=== PATIENT | male | born 1950 | race Caucasian/White ===

== ENCOUNTER → 2019-09-06 10:01 | Outpatient (BNVA) | payer MEDICARE, SELFPAY | PROVIDERS: Family Provider Nurse Practitioner Family; PCP Nurse Practitioner Family; Visit Provider Nurse Practitioner Family | DX: E11.65 Type 2 diabetes mellitus with hyperglycemia (principal); G47.00 Insomnia, unspecified; J30.89 Other allergic rhinitis; K21.9 Gastro-esophageal reflux disease without esophagitis; I10 Essential (primary) hypertension; R11.0 Nausea; E78.2 Mixed hyperlipidemia; E78.5 Hyperlipidemia, unspecified; Z91.19 Patient's noncompliance with other medical treatment and regimen | CPT/HCPCS: 80053; 80061; 83036; 84443; 85025 ==

== ENCOUNTER → 2019-09-08 08:42 | Outpatient (BNVA) | payer MEDICARE, SELFPAY | PROVIDERS: Family Provider Nurse Practitioner Family; PCP Nurse Practitioner Family; Visit Provider Nurse Practitioner | DX: M54.9 Dorsalgia, unspecified (principal); F17.220 Nicotine dependence, chewing tobacco, uncomplicated; Z79.891 Long term (current) use of opiate analgesic; Z71.6 Tobacco abuse counseling | CPT/HCPCS: 99214 ==

== ENCOUNTER → 2020-01-11 08:50 | Outpatient (BNVA) | payer MEDICARE, SELFPAY | PROVIDERS: Family Provider Nurse Practitioner Family; PCP Nurse Practitioner Family; Visit Provider Anesthesiology | DX: G89.29 Other chronic pain (principal); M54.41 Lumbago with sciatica, right side; M54.42 Lumbago with sciatica, left side; M25.511 Pain in right shoulder; M25.512 Pain in left shoulder; F17.220 Nicotine dependence, chewing tobacco, uncomplicated; Z79.891 Long term (current) use of opiate analgesic; Z71.6 Tobacco abuse counseling | CPT/HCPCS: 99214 ==

== ENCOUNTER → 2020-03-06 08:34 | Outpatient (BNVA) | payer MEDICARE, SELFPAY | PROVIDERS: Family Provider Nurse Practitioner Family; PCP Nurse Practitioner Family; Visit Provider Nurse Practitioner Family | DX: E78.2 Mixed hyperlipidemia (principal); E11.65 Type 2 diabetes mellitus with hyperglycemia; G47.00 Insomnia, unspecified; K21.9 Gastro-esophageal reflux disease without esophagitis; I10 Essential (primary) hypertension; J30.89 Other allergic rhinitis; R11.0 Nausea; F32.9 Major depressive disorder, single episode, unspecified; F17.220 Nicotine dependence, chewing tobacco, uncomplicated; Z91.19 Patient's noncompliance with other medical treatment and regimen | CPT/HCPCS: 80053; 80061; 83036; 84443; 85025 ==

== ENCOUNTER → 2020-03-14 08:29 | Outpatient (BNVA) | payer MEDICARE, SELFPAY | PROVIDERS: Family Provider Nurse Practitioner Family; PCP Nurse Practitioner Family; Visit Provider Anesthesiology | DX: G89.29 Other chronic pain (principal); M54.42 Lumbago with sciatica, left side; M54.41 Lumbago with sciatica, right side; M25.511 Pain in right shoulder; M25.512 Pain in left shoulder; F17.220 Nicotine dependence, chewing tobacco, uncomplicated; Z79.891 Long term (current) use of opiate analgesic | CPT/HCPCS: 99214 ==

== ENCOUNTER → 2020-05-16 07:51 | Outpatient (BNVA) | payer MEDICARE, SELFPAY | PROVIDERS: Family Provider Nurse Practitioner Family; PCP Nurse Practitioner Family; Visit Provider Anesthesiology | DX: G89.29 Other chronic pain (principal); M54.5 Low back pain; M25.511 Pain in right shoulder; M25.512 Pain in left shoulder; F17.220 Nicotine dependence, chewing tobacco, uncomplicated; Z79.891 Long term (current) use of opiate analgesic | CPT/HCPCS: 99214 ==

== ENCOUNTER → 2020-06-08 09:54 | Outpatient (BNVA) | payer MEDICARE, SELFPAY | PROVIDERS: Family Provider Nurse Practitioner Family; PCP Nurse Practitioner Family; Visit Provider Nurse Practitioner Family | DX: E78.2 Mixed hyperlipidemia (principal); E11.65 Type 2 diabetes mellitus with hyperglycemia; K21.9 Gastro-esophageal reflux disease without esophagitis; J30.89 Other allergic rhinitis; I10 Essential (primary) hypertension; G47.00 Insomnia, unspecified; R11.0 Nausea; F32.9 Major depressive disorder, single episode, unspecified; F17.220 Nicotine dependence, chewing tobacco, uncomplicated; Z91.19 Patient's noncompliance with other medical treatment and regimen | CPT/HCPCS: 80053; 80061; 83036; 84443; 85025 ==

== ENCOUNTER → 2020-07-11 08:44 | Outpatient (BNVA) | payer MEDICARE, SELFPAY | PROVIDERS: Family Provider Nurse Practitioner Family; PCP Nurse Practitioner Family; Visit Provider Nurse Practitioner | DX: G89.29 Other chronic pain (principal); M54.42 Lumbago with sciatica, left side; M54.41 Lumbago with sciatica, right side; M25.511 Pain in right shoulder; M25.512 Pain in left shoulder; F17.220 Nicotine dependence, chewing tobacco, uncomplicated; Z79.891 Long term (current) use of opiate analgesic; Z71.6 Tobacco abuse counseling | CPT/HCPCS: 99213; 99214 ==

== ENCOUNTER → 2020-09-01 08:42 | Outpatient (BNVA) | payer MEDICARE, SELFPAY | PROVIDERS: Family Provider Nurse Practitioner Family; PCP Nurse Practitioner Family; Visit Provider Nurse Practitioner Family | DX: E78.2 Mixed hyperlipidemia (principal); E11.9 Type 2 diabetes mellitus without complications; I10 Essential (primary) hypertension; K21.9 Gastro-esophageal reflux disease without esophagitis; G47.00 Insomnia, unspecified; F41.9 Anxiety disorder, unspecified | CPT/HCPCS: 80053; 80061; 83036; 84443; 85025 ==

== ENCOUNTER → 2020-09-15 09:50 | Outpatient (BNVA) | payer MEDICARE, SELFPAY | PROVIDERS: Family Provider Nurse Practitioner Family; PCP Nurse Practitioner Family; Visit Provider Nurse Practitioner | DX: G89.29 Other chronic pain (principal); M54.5 Low back pain; M25.511 Pain in right shoulder; M25.512 Pain in left shoulder; F17.220 Nicotine dependence, chewing tobacco, uncomplicated; Z79.891 Long term (current) use of opiate analgesic; Z71.6 Tobacco abuse counseling | CPT/HCPCS: 99213; 99214 ==

== ENCOUNTER → 2020-11-14 09:51 | Outpatient (BNVA) | payer MEDICARE, SELFPAY | PROVIDERS: Family Provider Nurse Practitioner Family; PCP Nurse Practitioner Family; Visit Provider Anesthesiology | DX: G89.29 Other chronic pain (principal); M54.5 Low back pain; M25.511 Pain in right shoulder; M25.512 Pain in left shoulder; F17.220 Nicotine dependence, chewing tobacco, uncomplicated; Z79.891 Long term (current) use of opiate analgesic | CPT/HCPCS: 99214 ==

== ENCOUNTER → 2020-12-04 10:21 | Outpatient (BNVA) | payer MEDICARE, SELFPAY | PROVIDERS: Family Provider Nurse Practitioner Family; PCP Nurse Practitioner Family; Visit Provider Nurse Practitioner Family | DX: E11.9 Type 2 diabetes mellitus without complications (principal); E78.2 Mixed hyperlipidemia; I10 Essential (primary) hypertension; K21.9 Gastro-esophageal reflux disease without esophagitis; R11.0 Nausea; G47.00 Insomnia, unspecified; F41.9 Anxiety disorder, unspecified; F32.9 Major depressive disorder, single episode, unspecified; J30.89 Other allergic rhinitis; F17.220 Nicotine dependence, chewing tobacco, uncomplicated; Z91.19 Patient's noncompliance with other medical treatment and regimen; M25.562 Pain in left knee | CPT/HCPCS: 80053; 80061; 83036; 84443; 85025 ==

== ENCOUNTER → 2020-12-06 09:58 | Outpatient (BNVA) | payer MEDICARE, SELFPAY | PROVIDERS: Family Provider Nurse Practitioner Family; PCP Nurse Practitioner Family; Visit Provider Nurse Practitioner Family | DX: M17.12 Unilateral primary osteoarthritis, left knee (principal); M25.562 Pain in left knee | CPT/HCPCS: 73562 ==

== ENCOUNTER → 2021-01-10 09:48 | Outpatient (BNVA) | payer MEDICARE, SELFPAY | PROVIDERS: Family Provider Nurse Practitioner Family; PCP Nurse Practitioner Family; Visit Provider Anesthesiology | DX: G89.29 Other chronic pain (principal); M54.5 Low back pain; M25.511 Pain in right shoulder; M25.512 Pain in left shoulder; F17.220 Nicotine dependence, chewing tobacco, uncomplicated; Z79.891 Long term (current) use of opiate analgesic | CPT/HCPCS: 99214 ==

== ENCOUNTER → 2021-02-27 08:51 | Outpatient (BNVA) | payer MEDICARE, SELFPAY | PROVIDERS: Family Provider Nurse Practitioner Family; PCP Nurse Practitioner Family; Visit Provider Nurse Practitioner Family | DX: E78.2 Mixed hyperlipidemia (principal); E11.9 Type 2 diabetes mellitus without complications; G47.00 Insomnia, unspecified; I10 Essential (primary) hypertension; K21.9 Gastro-esophageal reflux disease without esophagitis; J30.89 Other allergic rhinitis; F41.9 Anxiety disorder, unspecified | CPT/HCPCS: 80053; 80061; 83036; 84443; 85025 ==

== ENCOUNTER → 2021-03-08 07:58 | Outpatient (BNVA) | payer MEDICARE, SELFPAY | PROVIDERS: Family Provider Nurse Practitioner Family; PCP Nurse Practitioner Family; Visit Provider Anesthesiology | DX: G89.29 Other chronic pain (principal); M54.5 Low back pain; M25.511 Pain in right shoulder; M25.512 Pain in left shoulder; F17.220 Nicotine dependence, chewing tobacco, uncomplicated; Z79.891 Long term (current) use of opiate analgesic | CPT/HCPCS: 99213; 99214 ==

== ENCOUNTER → 2021-05-16 09:14 | Outpatient (BNVA) | payer MEDICARE, SELFPAY | PROVIDERS: Family Provider Nurse Practitioner Family; PCP Nurse Practitioner Family; Visit Provider Nurse Practitioner | DX: M79.18 Myalgia, other site (principal) | CPT/HCPCS: 73030 ==

== ENCOUNTER → 2021-05-18 09:28 | Outpatient (BNVA) | payer MEDICARE, SELFPAY | PROVIDERS: Family Provider Nurse Practitioner Family; PCP Nurse Practitioner Family; Visit Provider Anesthesiology | DX: G89.29 Other chronic pain (principal); M54.50 Low back pain, unspecified; M25.511 Pain in right shoulder; M25.512 Pain in left shoulder; F17.220 Nicotine dependence, chewing tobacco, uncomplicated; Z79.891 Long term (current) use of opiate analgesic | CPT/HCPCS: 99214 ==

== ENCOUNTER → 2021-06-06 09:21 | Outpatient (BNVA) | payer MEDICARE, SELFPAY | PROVIDERS: Family Provider Nurse Practitioner Family; PCP Nurse Practitioner Family; Visit Provider Nurse Practitioner Family | DX: E11.9 Type 2 diabetes mellitus without complications (principal); E78.2 Mixed hyperlipidemia | CPT/HCPCS: 80053; 80061; 83036; 84443; 85025 ==

== ENCOUNTER → 2021-07-18 08:22 | Outpatient (BNVA) | payer MEDICARE, SELFPAY | PROVIDERS: Family Provider Nurse Practitioner Family; PCP Nurse Practitioner Family; Visit Provider Anesthesiology | DX: G89.29 Other chronic pain (principal); M54.50 Low back pain, unspecified; F17.220 Nicotine dependence, chewing tobacco, uncomplicated; Z79.891 Long term (current) use of opiate analgesic | CPT/HCPCS: 99213 ==

== ENCOUNTER → 2021-08-13 11:14 | Outpatient (BNVA) | payer MEDICARE, SELFPAY | PROVIDERS: Family Provider Nurse Practitioner Family; PCP Nurse Practitioner Family; Visit Provider Nurse Practitioner | DX: E11.65 Type 2 diabetes mellitus with hyperglycemia (principal); M17.10 Unilateral primary osteoarthritis, unspecified knee; M17.0 Bilateral primary osteoarthritis of knee; I10 Essential (primary) hypertension | CPT/HCPCS: 80053; 83036 ==

== ENCOUNTER → 2021-10-30 10:43 | Outpatient (BNVA) | payer MEDICARE, SELFPAY | PROVIDERS: Family Provider Nurse Practitioner Family; PCP Nurse Practitioner Family; Visit Provider Nurse Practitioner Family | DX: E78.2 Mixed hyperlipidemia (principal); E11.65 Type 2 diabetes mellitus with hyperglycemia; G47.00 Insomnia, unspecified; K21.9 Gastro-esophageal reflux disease without esophagitis; I10 Essential (primary) hypertension; F41.9 Anxiety disorder, unspecified; M19.019 Primary osteoarthritis, unspecified shoulder; R11.0 Nausea; F32.9 Major depressive disorder, single episode, unspecified; R01.1 Cardiac murmur, unspecified; R00.2 Palpitations; I49.3 Ventricular premature depolarization | CPT/HCPCS: 80053; 80061; 83036; 84443; 85025 ==

== ENCOUNTER → 2022-04-23 10:15 | Outpatient (BNVA) | payer MEDICARE, SELFPAY | PROVIDERS: Family Provider Nurse Practitioner Family; PCP Nurse Practitioner Family; Visit Provider Nurse Practitioner Family | DX: M19.019 Primary osteoarthritis, unspecified shoulder (principal); J30.89 Other allergic rhinitis; F41.9 Anxiety disorder, unspecified; E78.2 Mixed hyperlipidemia; E11.65 Type 2 diabetes mellitus with hyperglycemia; G47.00 Insomnia, unspecified; I10 Essential (primary) hypertension; K21.9 Gastro-esophageal reflux disease without esophagitis; R30.0 Dysuria; M25.511 Pain in right shoulder; R11.0 Nausea; F32.9 Major depressive disorder, single episode, unspecified; F17.220 Nicotine dependence, chewing tobacco, uncomplicated; R01.1 Cardiac murmur, unspecified; Z91.19 Patient's noncompliance with other medical treatment and regimen | CPT/HCPCS: 80053; 80061; 81000; 83036; 84443; 85025 ==

== ENCOUNTER → 2022-07-26 10:13 | Outpatient (BNVA) | payer MEDICARE, SELFPAY | PROVIDERS: Family Provider Nurse Practitioner Family; PCP Nurse Practitioner Family; Visit Provider Nurse Practitioner Family | DX: E11.65 Type 2 diabetes mellitus with hyperglycemia (principal) | CPT/HCPCS: 80053; 80061; 83036; 84443; 85025 ==

== ENCOUNTER → 2022-09-23 09:44 | Outpatient (BNVA) | payer MEDICARE, SELFPAY | PROVIDERS: Family Provider Nurse Practitioner Family; PCP Nurse Practitioner Family; Visit Provider Nurse Practitioner Family | DX: K59.00 Constipation, unspecified (principal); R34 Anuria and oliguria | CPT/HCPCS: 71046; 74018; 80053; 85025 ==

== ENCOUNTER → 2022-09-24 10:14 | Outpatient (BNVA) | payer MEDICARE, SELFPAY | PROVIDERS: Family Provider Nurse Practitioner Family; PCP Nurse Practitioner Family; Visit Provider Nurse Practitioner Family | DX: K59.00 Constipation, unspecified (principal); R39.11 Hesitancy of micturition; R31.9 Hematuria, unspecified; K56.7 Ileus, unspecified | CPT/HCPCS: 74018; 81003; 84153; 87077; 87086; 87184 ==

== ENCOUNTER → 2022-09-26 10:39 | Outpatient (BNVA) | payer MEDICARE, SELFPAY | PROVIDERS: Family Provider Nurse Practitioner Family; PCP Nurse Practitioner Family; Visit Provider Nurse Practitioner Family | DX: K59.00 Constipation, unspecified (principal) | CPT/HCPCS: 74018 ==

== ENCOUNTER → 2022-09-30 11:09 | Outpatient (BNVA) | payer MEDICARE, SELFPAY | PROVIDERS: Family Provider Nurse Practitioner Family; PCP Nurse Practitioner Family; Visit Provider Nurse Practitioner Family | DX: R31.9 Hematuria, unspecified (principal) | CPT/HCPCS: 81000 ==

== ENCOUNTER → 2022-10-09 13:57 | Outpatient (BNVA) | payer MEDICARE, SELFPAY | PROVIDERS: Family Provider Nurse Practitioner Family; PCP Nurse Practitioner Family; Visit Provider Nurse Practitioner Family | DX: K59.00 Constipation, unspecified (principal) | CPT/HCPCS: 74018 ==

== ENCOUNTER 2022-10-16 08:10 | Outpatient (CLI) | payer MEDICARE, SELFPAY ==
[2022-10-16] MEDS: iohexol 350 mg/mL 500 mL Btl (per mL) IV (09:39)
[2022-10-16] MEDS: iohexol 350 mg/mL 500 mL Btl (per mL) PO (09:42)
--- NOTE | 2022-10-16 10:00 | CTR_ITS ---
PROCEDURE INFORMATION: Exam: CT Abdomen And Pelvis With Contrast Exam date and time: 10/16/2022 9:34 AM Age: 72 years old Clinical indication: Patient HX: Difficulty urinating and constipation x 3 wks, HX of prostate cancer; Additional info: R34 - anuria and oliguria TECHNIQUE: Imaging protocol: Computed tomography of the abdomen and pelvis with contrast. Radiation optimization: All CT scans at this facility use at least one of these dose optimization techniques: automated exposure control; mA and/or kV adjustment per patient size (includes targeted exams where dose is matched to clinical indication); or iterative reconstruction. Contrast material: OMNI 350; Contrast volume: 95 ml; Contrast route: INTRAVENOUS (IV); REPORTING DATA: Count of CT and Cardiac NM exams in prior 12 months: This patient has received 0 known CTs and 0 known cardiac nuclear medicine studies in the 12 months prior to the current study. COMPARISON: CR XR abdomen 1V* [id number] 10/09/2022 1:56 PM RADIATION DOSE METRICS: Total DLP (mGy-cm): 704.72 FINDINGS: Lungs: Mild elevation left hemidiaphragm with mild left basilar subsegmental atelectasis. Liver: Mild fatty infiltration throughout the liver. No masses or enlargement detected. Mild fatty infiltration throughout the liver. No masses or enlargement detected. Gallbladder and bile ducts: Normal. No calcified stones. No ductal dilation. Pancreas: Unremarkable. Main pancreatic duct is not significantly dilated. Spleen: Normal. No splenomegaly. Adrenal glands: Normal. No mass. Kidneys and ureters: 9 x 6 cm mildly septated exophytic cortical cyst lower pole and 5 x 4 cm mildly septated cortical cyst superior pole left kidney. Additional smaller cortical cysts both kidneys. Stomach and bowel: Diffuse circumferential rectal wall thickening involving the entire rectum more pronounced inferiorly with mild perirectal fat stranding he mid may be neoplastic or inflammatory in nature needs further evaluation. Colonic diverticulosis deep descending and sigmoid colon without evidence of acute diverticulitis. Appendix: No evidence of acute appendicitis. Intraperitoneal space: Unremarkable. No free air. No significant fluid collection. Vasculature: Scattered atherosclerotic changes of the abdominal aorta and iliac vessels. No aortic aneurysm. Lymph nodes: Unremarkable. No enlarged lymph nodes. Urinary bladder: Moderate asymmetric bladder wall thickening along the posterior bladder wall and bladder base with 3.5 cm complex cystic mass abutting the posterior bladder wall raising concern for neoplastic process, possible bladder wall tumor. Mild perivesical fat infiltration anterior to the urinary bladder, nonspecific. Reproductive: Prostate gland is mildly enlarged with central calcifications. Bones/joints: Moderate degenerative changes lower lumbar spine. No acute bony abnormalities. Soft tissues: Unremarkable. CT/CT abdomen pelvis w con* [id number] IMPRESSION: 1. Asymmetric bladder wall thickening posterior wall bladder base with adjacent 3.5 cm complex cystic mass raising concern for bladder wall neoplasm. Cystoscopy recommended for further evaluation. 2. Nonspecific rectal wall thickening that may be inflammatory or neoplastic in nature for which continued follow-up or sigmoidoscopy recommended. 3. Multiple mildly septated left renal cysts (Bosniak 2 F). Recommend follow-up renal ultrasound exam in 6 months for continued surveillance. 4. Additional nonemergent findings as above.
== END 2022-10-16 08:11 | disposition home or self-care (01) ==
LOC: RAD 08:13
PROVIDERS: PCP Nurse Practitioner Family; Visit Provider Nurse Practitioner Family
DX: R34 Anuria and oliguria (principal); K59.00 Constipation, unspecified; R31.9 Hematuria, unspecified; Z85.46 Personal history of malignant neoplasm of prostate; Q61.02 Congenital multiple renal cysts
CPT/HCPCS: 74177; Q9967

== ENCOUNTER 2022-11-10 09:25 | Emergency (ER) | payer MEDICARE, SELFPAY ==
[2022-11-10] VITALS (54 sets, daily range): BP systolic 84–162; BP diastolic 47–121; PULSE 108–158; RESP 11–50; TEMP 36.9; O2SAT 87–100; BMI 31.9
--- NOTE | 2022-11-10 09:26 | ED_ITS ---
HPI - Altered Mental Status General: Chief Complaint: Arrhythmia/Palpitations Stated Complaint: AMS; CHEST PAIN Time Seen by Provider: 11/10/22 09:26 Limitations: altered mental status History of Present Illness: Mr Cr is a 72-year-old gentleman with, per chart review, hypertension, hyperlipidemia, diabetes, chronic opioid use presenting to the emergency department for altered mental status. Per EMS report there initial call was for altered mental status and shortness of breath however the patient himself provided essentially no history and family was also not particularly revealing and history. They found the patient to have wide-complex tachycardia in the 180s. They obtained IV access, blood glucose 440, supplemental oxygen applied. 2 synchronized cardioversions were performed without successful conversion. Blood pressure has remained adequate and there is no significant rate improvement after 1 L of crystalloid IV fluids. In discussion with myself as online medical control 150 mg amiodarone was given over 10 minutes and 1 mg/min amiodarone drip with modest improvement in heart rate from 180s to 160. Overall patient continues to be markedly ill-appearing. History is otherwise limited by acuity of condition and patient's mental status. Review of Systems General: Reports: ROS unobtainable due to mental status PFSH ED PFSH: Medical History Anxiety Chewing tobacco nicotine dependence Chronic low back pain Chronic nausea Chronic pain of both shoulders Depression Diabetes mellitus with hyperglycemia, without long-term current use of insulin Encounter for long-term opiate analgesic use Environmental and seasonal allergies Essential hypertension GERD (gastroesophageal reflux disease) Hx of sebaceous cyst excision of cyst upper back performed on 05/06/18 Hyperlipidemia Insomnia Low back pain of over 3 months duration Noncompliance OA (osteoarthritis) of knee Opioid contract exists Surgical History Hx of colonoscopy Hx of shoulder surgery Right side Family History Brother Hypertension Kidney transplant Chronic kidney disease (CKD) Denies family history of Clotting disorder Anesthesia complication Bleeding disorder Social History Smoking and tobacco status: former smoker Second hand smoke exposure: No Smoking risk assessment/counseling performed?: Yes Alcohol intake: never Desire information about alcohol rehabilitation?: No Counseling given: No Desire information about substance/drug rehabilitation?: No Counseling given: No Caregiver/support person: No Lives independently: Yes Housing: House Marital status: Current occupational status: retired Current gender identity: Male Physical Exam Const: GENERAL APPEARANCE: in distress and ill appearing HENMT: COMMON NORMALS: normocephalic and atraumatic HEAD & SCALP: normocephalic and atraumatic THROAT: posterior oropharynx normal Eye: COMMON NORMALS: conjunctivae normal CONJUNCTIVA: Yes conjunctivae normal SCLERA: sclerae normal Neck/C-Spine: COMMON NORMALS: supple GENERAL: Yes trachea midline Resp: EFFORT & INSPECTION: Yes tachypneic and Yes grunting AUSCULTATION: bronchial breath sounds Cardio: RATE: tachycardic RHYTHM: abnormal rhythm irregularly irregular GI: COMMON NORMALS: Soft to palpation PALPATION: Yes Soft to palpation and No Tenderness to palpation present (GI) Extremity: GENERAL: Yes normal exam except as noted and No edema Neuro: SENSORIUM/ORIENTATION: Yes Orientation impaired OTHER: Possible seizure activity Psych: MEMORY/COGNITION: Yes cognition grossly impaired Procedures Central Line Placement Right Femoral: Time Out Performed: Yes Patient Placed on Monitor/Pulse Ox: Yes MD Prep: mask, gown and gloves Central Line Prep: Povidone-Iodine 1% and sterile drapes applied Ultrasound Used for Placement: Yes Central Line Lumen Inserted: triple Post Procedure: sutured in place, good blood return, all ports aspirated, flushed, capped and sterile dressing applied Patient Tolerated Procedure: well and no complications Lumbar Puncture Time Out Performed: Yes Patient Position: right lateral decubitus Skin Prep: Povidone-Iodine 1% Local Anesthetic: lidocaine 1% and with epi Amount of anesthesia used (mL): 3 Spinal Needle Gauge: 20G Interspace Used: L3-L4 Fluid Initially Obtained: cloudy Complications: none Course Vital Signs: Vital signs: Vital Signs Temperature 98.4 F 11/10/22 10:54 Pulse Rate 108 H 11/10/22 13:50 Respiratory Rate 29 H 11/10/22 13:50 Blood Pressure 96/61 11/10/22 13:55 Pulse Oximetry 99 11/10/22 14:00 Oxygen Delivery Me thod Non-Rebreather 11/10/22 09:41 Oxygen Flow Rate 10 11/10/22 09:41 Fraction of Inspir ed Oxygen 80 04/16/23 11:50 MDM - Altered Mental Status Medical Decision Making 72-year-old gentleman presenting with altered mental status via EMS. Patient has grunting respirations and altered mental status. He does not respond to sternal rub. He does appear to have possible seizure-like activity with vertical nystagmus though at times does appear to briefly regard to strong stimuli. Ativan ordered without significant improvement. Given severity of patient's symptoms and overall clinical appearance with predicted clinical course I proceeded with intubation. With etomidate the patient's upper and lower extremity shaking movements ceased with continued respirations and total paralytic took effect. Chest x-ray reviewed at bedside with satisfactory ET tube positioning. EKG shows atrial flutter or tachycardia with rapid ventricular response. Initial ABG 7.12/44.2/126. I suspect that patient primarily has metabolic acidosis. Labs notable for leukocytosis, hemoglobin 9.4 with normal MCV, but cytosis is mild. Metabolic panel with sodium 129, chloride 95, bicarb 13, anion gap 25.4. Glucose is elevated with negative ketones. Initial troponin elevated with repeat pending. Urinalysis is nitrite and leukoesterase negative however does have 15-25 whites and 3+ bacteria. Toxic ingestions and urine drug screen are negative.. Lactic acid is significantly elevated. Procalcitonin is negative. TSH normal. Repeat ABG with improvement in acidemia. Patient is overbreathing vent likely compensatory. Patient discussed with Dr. Sanchez who is the critical care attending at [facility] in [place]. I believe that the patient requires transfer for concern over status epilepticus/continued seizure and profound neurologic abnormality requiring active EEG monitoring not available at our facility. After discussion she requested I perform lumbar puncture which was performed as noted in procedures. Fluid cloudy. Patient appeared to otherwise tolerate procedure well. Given appearance I will add Rocephin and ampicillin coverage for meningitis. Additionally given limitations in drip compatibility and patient requiring multiple drips and antibiotics right femoral central line was placed. During ED course patient treated with propofol, fentanyl, benzodiazepine drip. 2 g Keppra given. IV fluids which accounting for prehospital administered fluids meets 30 cc/kg ideal body weight used based on obese BMI. Insulin 10 units IV push. Antibiotics included vancomycin, Zosyn, Rocephin, ampicillin as noted. Cardizem for heart rate control was paused with decrease in blood pressure. I did update the patient's son regarding plan for transfer and he was agreeable. He understands critical condition. Subsequent to discussion with accepting facility CSF results reveal suspected bacterial meningitis. Medical Records I reviewed the patient's medical records. Lab Data I reviewed the patient's lab results. 11/10/22 09:32 11/10/22 09:32 Radiology Impressions Chest X-Ray 11/10/22 09:40 IMPRESSION: 1. The tip of the endotracheal tube is 1.6 cm above the brian. Optimal position is 5 cm above the brian. 2. No pulmonary infiltrate, consolidation or pulmonary nodule. 3. Mild pulmonary vascular prominence. Cervical Spine CT 11/10/22 09:48 IMPRESSION: 1. Degenerative changes as above. 2. No acute cervical spinal bony abnormality/injury identified. Chest/Abdomen/Pelvis CT 11/10/22 09:48 IMPRESSION: 1. Endotracheal tube is low with almost at the level of the brian. 2. Bibasilar atelectasis and/or effusions or combination. 3. Slightly worsening pleuroparenchymal disease possibly worsening atelectasis or infiltrate involving the lingula. IMPRESSION: 1. New urinary bladder air. 2. Smaller lesion between the bladder and rectum. No bladder wall thickening. 3. Stable rectal wall thickening possibly neoplastic. 4. Stable renal lesions bilaterally. Head CT 11/10/22 09:48 IMPRESSION: 1. Chronic lacunar infarctions versus benign perivascular cysts bilateral inferior lentiform nuclei. 2. Age appropriate supratentorial and infratentorial atrophy. 3. Mild chronic white matter microvascular ischemic disease. 4. No acute intracranial abnormality/injury identified. Laboratory Results WBC 22.2 10^3/uL (4.0-10.0) H 11/10/22 09:32 RBC 3.94 10^6/uL (4.1-5.3) L 11/10/22 09:32 Hgb 9.4 g/dL (11.7-16.6) L 11/10/22 09:32 Hct 32.3 % (42.0-52.0) L 11/10/22 09:32 MCV 82.0 fl (80-94) 11/10/22 09:32 MCH 23.9 pg (28.0-34.0) L 11/10/22 09:32 MCHC 29.1 g/dL (30.0-36.0) L 11/10/22 09:32 RDW 15.8 % (12.1-15.1) H 11/10/22 09:32 Plt Count 472 10^3/cmm (130-400) H 11/10/22 09:32 MPV 9.1 fL (7.4-10.4) 11/10/22 09:32 Neut % (Auto) 87.3 % 11/10/22 09:32 Lymph % (Auto) 8.9 % 11/10/22 09:32 [place] % (Auto) 2.8 % 11/10/22 09:32 Eos % (Auto) 0.1 % 11/10/22 09:32 Baso % (Auto) 0.3 % 11/10/22 09:32 Neut # (Auto) 19.36 10^3/uL (1.8-7.7) H 11/10/22 09:32 Lymph # (Auto) 2.0 10^3/uL (0.8-4.8) 11/10/22 09:32 [place] # (Auto) 0.6 10^3/uL (0.2-0.9) 11/10/22 09:32 Eos # (Auto) 0.0 10^3/uL (0.0-0.8) 11/10/22 09:32 Baso # (Auto) 0.1 10^3/uL (0.0-0.1) 11/10/22 09:32 Nucleated RBC % (auto) 0 % 11/10/22:32 Nucleated RBCs # 0.0 /100WBC 11/10/22 09:32 PT 14.60 SECONDS (12.1-14.9) 11/10/22 09:32 INR 1.10 (0.8-1.2) 11/10/22 09:32 APTT 26.1 SECONDS (23.9-36.7) 11/10/22 09:32 Specimen Type Arterial 11/10/22 12:18 Sample Site Radial, left 11/10/22 12:18 ABG pH 7.34 (7.35-7.45) L 11/10/22 12:18 ABG pCO2 33.6 mmHg (35-45) L 11/10/22 12:18 ABG pO2 152.0 mmHg (80.0-100.0) H 11/10/22 12:18 ABG HCO3 18.1 mmol/L (22-26) L 11/10/22 12:18 ABG Base Excess -7.0 mmol/L (-2.0-2.0) L 11/10/22 12:18 Arnie Test Pos 11/10/22 12:18 Hematocrit 29.6 % (42-52) L 11/10/22 12:18 O2 Delivery Device Vent 11/10/22 12:18 FiO2 80.0 % 11/10/22 12:18 PEEP 6.0 cmH20 11/10/22 12:18 Operations Administrative Assistant ID [place] 11/10/22 12:18 Sodium 129 mmol/L (136-145) L 11/10/22 09:32 Potassium 4.4 mmol/L (3.5-5.1) 11/10/22 09:32 Chloride 95 mmol/L (98-107) L 11/10/22 09:32 Carbon Dioxide 13 mmol/L (22-29) L 11/10/22 09:32 Anion Gap 25.4 (5-19) H 11/10/22 09:32 BUN 19 mg/dL (8-23) 11/10/22 09:32 Creatinine 1.2 mg/dL (0.7-1.2) 11/10/22 09:32 GFR Calculation Not Reportable 11/10/22 09:32 Glucose 423 mg/dL (65-115) H 11/10/22 09:32 POC Glucose 365 mg/dL (70-110) H 11/10/22 10:53 Calculated Osmolality 288 mOsm/kg (285-295) 11/10/22 09:32 Lactic Acid 9.3 mmol/L (0.5-2.2) H* 11/10/22 09:32 Lactic Acid (Sepsis) 6.1 mmol/L (0.5-2.2) H* 11/10/22 13:33 Calcium 8.1 mg/dL (8.5-10.5) L 11/10/22 09:32 Magnesium 1.7 mg/dL (1.7-2.3) 11/10/22 09:32 Total Bilirubin 0.2 mg/dL (0.15-1.2) 11/10/22 09:32 AST 30 U/L (0-40) 11/10/22 09:32 ALT 22 U/L (0-41) 11/10/22 09:32 Alkaline Phosphatase 116 U/L (40-130) 11/10/22 09:32 Creatine Kinase 98 U/L (39-308) 11/10/22 09:32 Troponin T Baseline 114 ng/L (0-15) H* 11/10/22 09:32 Troponin T 120 Minute 450.3 ng/L (0-15) H 11/10/22 13:33 Delta Troponin T 336.3 ABS# (0-10) H* 11/10/22 13:33 Total Protein 5.8 g/dL (6.6-8.7) L 11/10/22 09:32 Albumin 3.3 g/dL (3.5-5.2) L 11/10/22 09:32 Globulin 2.5 g/dL (1.3-4.6) 11/10/22 09:32 Procalcitonin 0.30 ng/mL (0-0.5) 11/10/22 09:32 TSH 0.73 uIU/mL (0.27-4.20) 11/10/22 09:32 Urine Color Straw (Yellow) 11/10/22 11:10 Urine Appearance Sl hazy (CLEAR) A 11/10/22 11:10 Urine pH 5 (5-7) 11/10/22 11:10 Ur Specific [place] 1.020 (1.005-1.030) 11/10/22 11:10 Urine Protein Trace (Negative) 11/10/22 11:10 Urine Glucose (UA) 4+ (Normal) H 11/10/22 11:10 Urine Ketones Negative (Negative) 11/10/22 11:10 Urine Blood 2+ (Negative) H 11/10/22 11:10 Urine Nitrate Negative (Negative) 11/10/22 11:10 Urine Bilirubin Neg (Negative) 11/10/22 11:10 Urine Urobilinogen Norm mg/dL (Negative) 11/10/22 11:10 Ur Leukocyte Esterase Negative (Negative) 11/10/22 11:10 Urine RBC 0-4 /hpf (0-2) H 11/10/22 11:10 Urine WBC 15-25 /hpf (0-5) H 11/10/22 11:10 Ur Squamous Epith Cells None /hpf (0-5) 11/10/22 11:10 Amorphous Sediment Not Reportable 11/10/22 11:10 Urine Bacteria 3+ /hpf (NONE) H 11/10/22 11:10 CSF Appearance Cloudy (CLEAR) 11/10/22 12:05 CSF Color Colorless (COLORLESS) 11/10/22 12:05 CSF Specific [place] 1.005 11/10/22 12:05 CSF WBC 22552 /uL (0-5) H 11/10/22 12:05 CSF RBC 0 10^3/uL (0-0) 11/10/22 12:05 CSF Mononuclear # Auto 0.138 10^3/uL (50-90) L 11/10/22 12:05 CSF Mononuclear WBCs % 1 % (50-90) L 11/10/22 12:05 CSF Polynuclear WBCs # 16.052 10^3/uL (0-10) H 11/10/22 12:05 CSF Polynuclear WBCs % 99 % (0-10) H 11/10/22 12:05 CSF Glucose 135 mg/dL (40-70) H 11/10/22 12:05 CSF Total Protein 642 mg/dL (15-45) H 11/10/22 12:05 Salicylates 2.1 mg/dL (3-10) L 11/10/22 09:32 Urine Opiates Screen Negative ng/mL (Negative) 11/10/22 11:10 Acetaminophen < 5.0 ug/mL (10-30) L 11/10/22 09:32 Ur Barbiturates Screen Negative ng/mL (Negative) 11/10/22 11:10 Ur Phencyclidine Scrn Negative ng/mL (Negative) 11/10/22 11:10 Ur Amphetamines Screen Negative ng/mL (Negative) 11/10/22 11:10 U Benzodiazepines Scrn Negative ng/mL (Negative) 11/10/22 11:10 Urine Cocaine Screen Negative ng/mL (Negative) 11/10/22 11:10 U Marijuana (THC) Screen Negative ng/mL (Negative) 11/10/22 11:10 Ethyl Alcohol < 10 mg/dL (0-10) 11/10/22 09:32 Serum Ketones Negative (Negative) 11/10/22 09:32 SARS-CoV-2 Ag (Rapid) negative (Negative) 11/10/22 10:58 Critical Care Time Critical Care Time: Critical Care Time: Yes Total Critical Care Time: 140 Attestation: Due to a high probability of clinically significant, possibly life threatening deterioration, the patient required my highest level of attention and preparedness to intervene emergently and I personally spent this critical care time directly and personally managing the patient. This critical care time included obtaining a history; examining the patient; pulse oximetry; ordering and review of laboratory and imaging studies; arranging urgent treatment with development of a management plan; evaluation of patient's response to treatment; frequent reassessment; and, discussions with other providers as applicable. It was exclusive of separately billable procedures. Primary system involved is neuro and infectious disease. Discharge Plan Discharge Patient Disposition: Xfer Short-Term Hosp Clinical Impression: Meningitis, Severe sepsis, Acute alteration in mental status, Seizure, Acute respiratory failure with hypoxia, Acidosis, lactic Condition: Critical Referrals: Ananya Moeller FNP-C [Primary Care Provider] - Coding Level of Care Code ED Proof Technician for Ammy Parrish
[2022-11-10] MEDS: LORazepam 2 mg/mL INJ 1 mL (09:32)
--- NOTE | 2022-11-10 09:40 | XRR_ITS ---
PROCEDURE INFORMATION: Exam: XR Chest Exam date and time: 11/10/2022 9:46 AM Age: 72 years old Clinical indication: Endotracheal tube placement. TECHNIQUE: Imaging protocol: AP portable semi upright chest x-ray. Views: 1 view. COMPARISON: CR XR chest 2V* [id number] 09/23/2022 10:08 AM FINDINGS: Limitations: Image quality is limited by AP portable technique. The patient is mildly rotated to the right. Tubes, catheters and devices: The tip of the endotracheal tube is 1.6 cm above the brian. Lungs: No pulmonary infiltrate, consolidation or pulmonary nodule. Mild pulmonary vascular prominence. Pleural spaces: No significant pleural effusion. No pneumothorax. Heart/Mediastinum: The cardiac silhouette is normal in size. The mediastinal contour is normal. Bones/joints: No acute osseous abnormalities are identified. Soft tissues: Unremarkable. XR/XR chest 1V portable [id number] IMPRESSION: 1. The tip of the endotracheal tube is 1.6 cm above the brian. Optimal position is 5 cm above the brian. 2. No pulmonary infiltrate, consolidation or pulmonary nodule. 3. Mild pulmonary vascular prominence.
--- NOTE | 2022-11-10 09:41 | ECG_ITS ---
[facility] Test Date: 2022-11-10 Pat Name: Cristobal Cr Department: Room: Gender: Male Insurance Sales Producer: : [id number] Requested By: Nish Rebolledo Order Number: [id number] Patrick MD: Se Herrera M.D. Measurements Intervals [place] Rate: 146 P: 0 MO: 0 QRS: 11 QRSD: 156 T: 91 QT: 288 QTc: 450 Interpretive Statements ATRIAL FLUTTER WITH RAPID VENTRICULAR RESPONSE INTRAVENTRICULAR CONDUCTION DELAY [130+ ms QRS DURATION] No previous ECG available for comparison Electronically Signed On 11-10-2022 21:27:19 CDT by Se Herrera M.D. [id number] [email or web address]
--- NOTE | 2022-11-10 09:48 | CTR_ITS ---
PROCEDURE INFORMATION: Exam: CT Chest Without Contrast; Diagnostic Exam date and time: 11/10/2022 10:40 AM Age: 72 years old Clinical indication: Abdominal tenderness and other: AMS; Shortness of breath TECHNIQUE: Imaging protocol: Diagnostic computed tomography of the chest without contrast. Radiation optimization: All CT scans at this facility use at least one of these dose optimization techniques: automated exposure control; mA and/or kV adjustment per patient size (includes targeted exams where dose is matched to clinical indication); or iterative reconstruction. REPORTING DATA: Count of CT and Cardiac NM exams in prior 12 months: This patient has received 3 known CTs and 0 known cardiac nuclear medicine studies in the 12 months prior to the current study. COMPARISON: CR (CHEST, ) 11/10/2022 9:46 AM RADIATION DOSE METRICS: Total DLP (mGy-cm): 1188.16 FINDINGS: Tubes, catheters and devices: There is an endotracheal tube. It is less than 1 cm above the brian but not within the right mainstem bronchus. Lungs: Pleuroparenchymal disease in the lingula of unknown acuity. This is slightly progressed since the previous CT abdomen/pelvis. Pleural spaces: See Soft tissues finding. Heart: Unremarkable. No cardiomegaly. No pericardial effusion. Coronary arteries: Mild coronary artery calcifications. Lymph nodes: Unremarkable. No enlarged lymph nodes. Vasculature: Unremarkable. No aortic aneurysm. Intraperitoneal space: The abdomen and pelvis will be discussed below. Bones/joints: Unremarkable. No acute fracture. Soft tissues: Extensive artifact from the patient's arms scanned by his side. Bibasilar atelectasis versus small bilateral pleural effusions are a combination. PROCEDURE INFORMATION: Exam: CT Abdomen And Pelvis Without Contrast Exam date and time: 11/10/2022 10:40 AM Age: 72 years old Clinical indication: Abdominal tenderness and other: AMS; Shortness of breath TECHNIQUE: Imaging protocol: Computed tomography of the abdomen and pelvis without contrast. Radiation optimization: All CT scans at this facility use at least one of these dose optimization techniques: automated exposure control; mA and/or kV adjustment per patient size (includes targeted exams where dose is matched to clinical indication); or iterative reconstruction. REPORTING DATA: Count of CT and Cardiac NM exams in prior 12 months: This patient has received 3 known CTs and 0 known cardiac nuclear medicine studies in the 12 months prior to the current study. COMPARISON: CT abdomen pelvis w con* [id number] 10/16/2022 9:34 AM RADIATION DOSE METRICS: Total DLP (mGy-cm): 1188.16 FINDINGS: Lungs: The lungs will be discussed above. Liver: Normal. No mass. Gallbladder and bile ducts: Normal. No calcified stones. No ductal dilation. Pancreas: Normal. No ductal dilation. Spleen: Normal. No splenomegaly. Adrenal glands: Normal. No mass. Kidneys and ureters: Stable cysts involving the left kidney. Stable exophytic slightly hyperdense 13 x 10 mm right renal cyst. Stomach and bowel: Numerous diverticula throughout the colon. No diverticulitis. Diffuse circumferential rectal wall thickening possibly a neoplastic process. Stable since the previous examination. Consider direct visualization. Appendix: Unremarkable right lower quadrant visualized appendix. Intraperitoneal space: Unremarkable. No free air. No significant fluid collection. Vasculature: Unremarkable. No abdominal aortic aneurysm. Lymph nodes: Unremarkable. No enlarged lymph nodes. Urinary bladder: Air in the urinary bladder. Has this patient been catheterized? The fluid collection between the rectum and the bladder is much smaller now. It measures only 13 x 29 mm un does not have fluid within it. Reproductive: Stable prostatic calcifications but the prostate gland is not enlarged. Bones/joints: Arthritis and scoliosis in the spine. Soft tissues: Unremarkable. CT/[place] [id number] IMPRESSION: 1. Endotracheal tube is low with almost at the level of the brian. 2. Bibasilar atelectasis and/or effusions or combination. 3. Slightly worsening pleuroparenchymal disease possibly worsening atelectasis or infiltrate involving the lingula. IMPRESSION: 1. New urinary bladder air. 2. Smaller lesion between the bladder and rectum. No bladder wall thickening. 3. Stable rectal wall thickening possibly neoplastic. 4. Stable renal lesions bilaterally.
--- NOTE | 2022-11-10 09:48 | CTR_ITS ---
PROCEDURE INFORMATION: Exam: CT Head Without Contrast Exam date and time: 11/10/2022 10:36 AM Age: 72 years old Clinical indication: Altered mental status/memory loss; Confusion or disorientation; Additional info: AMS TECHNIQUE: Imaging protocol: Computed tomography of the head without contrast. Radiation optimization: All CT scans at this facility use at least one of these dose optimization techniques: automated exposure control; mA and/or kV adjustment per patient size (includes targeted exams where dose is matched to clinical indication); or iterative reconstruction. REPORTING DATA: Count of CT and Cardiac NM exams in prior 12 months: This patient has received 3 known CTs and 0 known cardiac nuclear medicine studies in the 12 months prior to the current study. COMPARISON: No relevant prior studies available. RADIATION DOSE METRICS: Total DLP (mGy-cm): 1234.52 FINDINGS: Brain: Chronic lacunar infarctions versus benign perivascular cysts bilateral inferior lentiform nuclei. Mild hypoattenuating foci are noted in the anterior lateral ventricular periventricular white matter bilaterally. No intracranial hemorrhage. No mass or acute cortical infarction identified. Ventricles: Prominence of the ventricular system and subarachnoid spaces is consistent with the patient's age of 72 years. Paranasal sinuses: Visualized sinuses are unremarkable. No fluid levels. Mastoid air cells: Visualized mastoid air cells are well aerated. Bones/joints: No acute abnormality. No acute fracture. Soft tissues: Unremarkable. Vasculature: Atherosclerotic calcifications are present involving the carotid artery siphons bilaterally. CT/CT head wo con* [id number] IMPRESSION: 1. Chronic lacunar infarctions versus benign perivascular cysts bilateral inferior lentiform nuclei. 2. Age appropriate supratentorial and infratentorial atrophy. 3. Mild chronic white matter microvascular ischemic disease. 4. No acute intracranial abnormality/injury identified.
--- NOTE | 2022-11-10 09:48 | CTR_ITS ---
PROCEDURE INFORMATION: Exam: CT Cervical Spine Without Contrast Exam date and time: 11/10/2022 10:36 AM Age: 72 years old Clinical indication: Weakness; Additional info: AMS TECHNIQUE: Imaging protocol: Computed tomography of the cervical spine without contrast. Radiation optimization: All CT scans at this facility use at least one of these dose optimization techniques: automated exposure control; mA and/or kV adjustment per patient size (includes targeted exams where dose is matched to clinical indication); or iterative reconstruction. REPORTING DATA: Count of CT and Cardiac NM exams in prior 12 months: This patient has received 3 known CTs and 0 known cardiac nuclear medicine studies in the 12 months prior to the current study. COMPARISON: CR (CHEST, ) 11/10/2022 9:46 AM RADIATION DOSE METRICS: Total DLP (mGy-cm): 260.7 FINDINGS: Tubes, catheters and devices: Endotracheal tube incompletely imaged in the upper thoracic trachea. Bones/joints: No fracture. No destructive bony process identified. Unfused midline posterior arch of C1, normal variant. C2-C3 congenital block vertebra, developmental variant. Mild left C3-C4 primary facet osteoarthritis. Severe left C3-C4 neural foraminal narrowing. Moderate left C4-C5 neural foraminal narrowing. Mild left C4-C5 primary facet osteoarthritis. Mild C4-C5 retrolisthesis. Severe C4-C5 degenerative disc height loss, mild spondylosis. Mild left C6-C7 primary facet osteoarthritis. Mild C6-C7 spondylosis. Mild bilateral C7-T1 primary facet osteoarthritis. Mild left T1-2 primary facet osteoarthritis. Lungs: Lung apices are normal. Vasculature: Bilateral carotid atherosclerotic calcifications. Soft tissues: Unremarkable. CT/CT cervical spin wo con* [id number] IMPRESSION: 1. Degenerative changes as above. 2. No acute cervical spinal bony abnormality/injury identified.
[2022-11-10] MEDS: propofol 1,000 MG/100 ML INJ 10.8 MG IV (09:53)
[2022-11-10 09:56] LABS: Basophils # 0.1 10^3/uL (0.0-0.1); Basophils % 0.3 %; Eosinophils % 0.1 %; Hematocrit 32.3 % (42.0-52.0); Hemoglobin 9.4 g/dL (11.7-16.6); Lymphocytes % 8.9 %; Mean Corpuscular HGB Conc 29.1 g/dL (30.0-36.0); Mean Corpuscular Hemoglobin 23.9 pg (28.0-34.0); Mean Platelet Volume 9.1 fL (7.4-10.4); Monocytes # 0.6 10^3/uL (0.2-0.9); Monocytes % 2.8 %; Neutrophils # 19.36 10^3/uL (1.8-7.7); Neutrophils % 87.3 %; Nucleated Red Blood Cells % 0 %; Platelet Count 472 10^3/cmm (130-400); Red Blood Count 3.94 10^6/uL (4.1-5.3); Red Cell Distribution Width 15.8 % (12.1-15.1); White Blood Count 22.2 10^3/uL (4.0-10.0)
[2022-11-10] MEDS: sodium chloride 0.9% 1,000 ML 999 ML IV ×2 (09:56→15:27)
[2022-11-10] MEDS: dilTIAZem 100 MG in sodium chloride 0.9% (add-van) 100 ML IV (10:01)
[2022-11-10 10:02] LABS: ABG PCO2 44.2 mmHg (35-45); Arterial Blood Gas Hematocrit 32.9 % (42-52); Base Excess ABG -14.3 mmol/L (-2.0-2.0); Blood Gas Allen Test Pos; Blood Gas Operator Identificat glc; Blood Gas Sample Site Radial, left; Blood Gas Sample Type Arterial; HCO3 ABG 14.4 mmol/L (22-26); Oxygen Device AMBU
[2022-11-10 10:03] LABS: ABG PH Result 7.12 (7.35-7.45)
[2022-11-10 10:08] LABS: Partial Thromboplastin Time 26.1 SECONDS (23.9-36.7)
[2022-11-10 10:23] LABS: Thyroid Stimulating Hormone 0.73 uIU/mL (0.27-4.20)
[2022-11-10 10:24] LABS: Lactic Sepsis W/Reflex 9.3 mmol/L (0.5-2.2); Troponin(5th) Baseline 114 ng/L (0-15)
[2022-11-10 10:29] LABS: Ketone (Acetest) Serum Negative (Negative)
[2022-11-10 10:34] LABS: Alanine Aminotransferase 22 U/L (0-41); Albumin Level 3.3 g/dL (3.5-5.2); Alkaline Phosphatase 116 U/L (40-130); Anion Gap 25.4 (5-19); Aspartate Amino Transferase 30 U/L (0-40); Blood Urea Nitrogen 19 mg/dL (8-23); Calcium 8.1 mg/dL (8.5-10.5); Carbon Dioxide 13 mmol/L (22-29); Chloride 95 mmol/L (98-107); Creatine Phosphokinase 98 U/L (39-308); Globulin 2.5 g/dL (1.3-4.6); Glucose 423 mg/dL (65-115); Magnesium 1.7 mg/dL (1.7-2.3); Osmolality Calculated 288 mOsm/kg (285-295); Potassium 4.4 mmol/L (3.5-5.1); Salicylate 2.1 mg/dL (3-10); Sodium 129 mmol/L (136-145); Total Bilirubin 0.2 mg/dL (0.15-1.2); Total Protein 5.8 g/dL (6.6-8.7)
[2022-11-10 10:38] LABS: Acetaminophen < 5.0 ug/mL (10-30); Alcohol Level < 10 mg/dL (0-10)
[2022-11-10] MEDS: dilTIAZem 100 MG in sodium chloride 0.9% (add-van) 100 ML 7.5 MG IV (10:52)
--- NOTE | 2022-11-10 10:54 | PC.NURSE ---
pt to and from CT with RN and RT, pt transported on portable VS and air sampling and monitoring.
[2022-11-10 11:07] LABS: Reflex Lactate Order REFLEX LACTIC ORDERD
[2022-11-10] MEDS: dilTIAZem 100 MG in sodium chloride 0.9% (add-van) 100 ML 10 MG IV (11:08)
[2022-11-10] MEDS: propofol 1,000 MG/100 ML INJ 13.5 MG IV (11:19)
[2022-11-10] MEDS: propofol 1,000 MG/100 ML INJ 18.9 MG IV (11:25)
--- NOTE | 2022-11-10 11:26 | PC.NURSE ---
pt starting to breath over vent and is bitting the ETT. Orders received to initiate versed and physican to room
[2022-11-10] MEDS: dilTIAZem 100 MG in sodium chloride 0.9% (add-van) 100 ML 12.5 MG IV (11:28)
[2022-11-10 11:33] LABS: Amphetamines Screen Urine Negative (Negative); Barbiturates Screen Urine Negative (Negative); Benzodiazepines Screen Urine Negative (Negative); Cocaine Screen Urine Negative (Negative); Opiate Screen Urine Negative (Negative); PCP Screen Urine Negative (Negative); THC Screen Urine Negative (Negative)
[2022-11-10 11:34] LABS: SARS Covid-2 Antigen negative (Negative)
--- NOTE | 2022-11-10 11:38 | PC.NURSE ---
LATE NOTE DUE TO PT CONDITON pt arrived by EMS on NRB and unresponsive. 30 etomodate and 10 vecuronium given. pt was intubated by Dr. Rebolledo on arrival with 8.0 ETT secured at 25 at lip. placement confirmed with positive color change, lung sounds present bilat, and a CXR. pupils are round, equal, and sluggish to react to light after pt was sedated.
--- NOTE | 2022-11-10 11:41 | ECG_ITS ---
[facility] Test Date: 2022-11-10 Pat Name: Cristobal Cr Department: Room: Gender: Male [employer] Associate: : [id number] Requested By: Nish Rebolledo Order Number: [id number] Patrick MD: Se Herrera M.D. Measurements Intervals Page Rate: 125 P: 10 MI: 129 QRS: 34 QRSD: 128 T: 99 QT: 345 QTc: 499 Interpretive Statements SINUS TACHYCARDIA LEFT BUNDLE BRANCH BLOCK [120+ ms QRS DURATION, 80+ ms Q/S IN V1/V2, 85+ ms R IN I/aVL/V5/V6] Electronically Signed On 11-10-2022 11:51:41 CDT by Se Herrera M.D. [email or web address]
--- NOTE | 2022-11-10 11:48 | PC.NURSE ---
pt continues to bite at tube and breath over vent. RT and Dr. Rebolledo at bedside. Dr. Rebolledo administered a 50mcg fentanyl bolus. Dr. Rebolledo notified of max titration of Cardizem and almost near max on Propofol drip. Verbal order from Dr. Rebolledo to titrate versed from 1mg/hr to 5mg/hr
[2022-11-10 11:49] LABS: Add Urine Culture? Yes; Add Urine Microscopic? YES; Bacteria Urine 3+ /hpf; Bilirubin Urine Neg (Negative); Blood Urine 2+ (Negative); Glucose Urine UA 4+ (Normal); Ketones Urine Negative (Negative); Leukocyte Esterase Urine Negative (Negative); Nitrate Urine Negative (Negative); Protein Urine Trace (Negative); RBC Urine 0-4 /hpf (0-2); Urine Appearance SL Hazy (CLEAR); Urine Color Straw (Yellow); Urobilinogen Urine Norm (Negative); WBC Urine 15-25 /hpf (0-5); pH Urine 5 (5-7)
--- NOTE | 2022-11-10 11:58 | PC.NURSE ---
Time out completed at bedside with Dr. Rebolledo and RT for lumbar puncture
[2022-11-10 12:29] LABS: ABG PCO2 33.6 mmHg (35-45); ABG PH Result 7.34 (7.35-7.45); Arterial Blood Gas Hematocrit 29.6 % (42-52); Blood Gas Allen Test Pos; Blood Gas Operator Identificat WALCI; Blood Gas Sample Site Radial, left; Blood Gas Sample Type Arterial; HCO3 ABG 18.1 mmol/L (22-26); Oxygen Device VENT
[2022-11-10] MEDS: magnesium sulfate premix 2 GM/50 ML PIGGYBACK IV (12:30)
[2022-11-10] MEDS: insulin regular-human 100 units/1 mL 10 UNIT IVP (12:31)
--- NOTE | 2022-11-10 12:42 | PC.NURSE ---
pt noted to have RR 40s-50s. BP 90s systolic. Dr. Rebolledo to room, no new orders received at that time
[2022-11-10 12:45] LABS: CSF Mononuclear # 0.138 10^3/uL (50-90); Mononuclear WBC CSF % 1 % (50-90); Polynuclear WBC CSF % 99 % (0-10); Red Blood Cell CSF 0 10^3/uL (0-0); White Blood Cell CSF 16190 /uL (0-5)
--- NOTE | 2022-11-10 12:46 | PC.NURSE ---
BP 88/49, propofol drip decreased per titration
[2022-11-10 12:50] LABS: Cyto Order Verification No Order
[2022-11-10 12:51] LABS: Appearance CSF CLOUDY (CLEAR); Color CSF COLORLESS (COLORLESS)
[2022-11-10 12:56] LABS: CSF Specific Gravity 1.005
[2022-11-10 12:56] LABS: Glucose Point of Care 365 mg/dL (70-110)
--- NOTE | 2022-11-10 13:06 | PC.NURSE ---
carlos eduardo paused by Dr. Rebolledo. Physician at bedside for femoral line placement.
[2022-11-10 13:14] LABS: Glucose CSF 135 mg/dL (40-70)
[2022-11-10] MEDS: ampicillin 2,000 MG in sodium chloride 0.9% (plus) 50 ML 100 MG IV (13:31)
[2022-11-10] MEDS: cefTRIAXone 2,000 MG in sodium chloride 0.9% (plus) 50 ML 100 MG IV (13:45)
--- NOTE | 2022-11-10 13:59 | PC.NURSE ---
family and flight crew to bedside. Report given to [employer] team.
--- NOTE | 2022-11-10 14:03 | PC.NURSE ---
fentanyl was titrated down by Dr. Rebolledo
[2022-11-10 14:52] LABS: Troponin 5 2HR 450.3 ng/L (0-15)
[2022-11-10 14:53] LABS: Troponin 5 2HR Delta 336.3 ABS# (0-10)
[2022-11-10 14:54] LABS: Lactic Acid level (Lactate) 6.1 mmol/L (0.5-2.2)
[2022-11-10 15:03] LABS: Total Protein CSF 642 mg/dL (15-45)
[2022-11-10] MEDS: piperacillin-tazobactam 4.5 GM in sodium chloride 0.9% (plus) 50 ML IV (15:26)
--- NOTE | 2022-11-10 16:36 | PC.NURSE ---
Call received from Yumi, charge nurse in Neuro ICU from [facility]. Their physician is requesting meningitis PCR and HSV labs added to CSF. Unable to order meningitis PCR but able to order HSV test, however, it is a send out test. Yumi notified.
[2022-11-13 17:05] LABS: Glucose Point of Care 288 mg/dL (70-110)
[2022-11-13 17:05] LABS: Glucose Point of Care 253 mg/dL (70-110)
[2022-11-13 17:05] LABS: Glucose Point of Care 351 mg/dL (70-110)
[2022-11-16 10:14] LABS: HSV 1 DNA NOT DETECTED; HSV 2 DNA NOT DETECTED; HSV Source CEREBROSPINAL FLUID
== END 2022-11-10 16:41 | disposition short-term general hospital (02) ==
PROVIDERS: Emergency Provider Emergency Medicine; PCP Nurse Practitioner Family
DX: G03.9 Meningitis, unspecified (principal); A41.9 Sepsis, unspecified organism; R65.20 Severe sepsis without septic shock; R41.82 Altered mental status, unspecified; R56.9 Unspecified convulsions; E87.20 Acidosis, unspecified; J96.01 Acute respiratory failure with hypoxia; Z20.822 Contact with and (suspected) exposure to COVID-19; Z87.891 Personal history of nicotine dependence; E11.9 Type 2 diabetes mellitus without complications; I10 Essential (primary) hypertension; E78.5 Hyperlipidemia, unspecified; F11.90 Opioid use, unspecified, uncomplicated
CPT/HCPCS: 31500; 36415; 36416; 36556; 36600; 51702; 62270; 70450; 71045; 71250; 72125; 74176; 80053; 80306; 80307; 80503; 81001; 82009; 82550; 82803; 82945; 82962; 83605; 83735; 84145; 84157; 84315; 84443; 84484; 85025; 85610; 85730; 87040; 87070; 87075; 87077; 87086; 87186; 87205; 87426; 87530; 89050; 93005; 94002; 94799; 96365; 96366; 96367; 96375; 99291; 99292; C1751; J0290; J0696; J1815; J1953; J2060; J2250; J2543; J2704; J3010; J3370; J3475; J3490; J7030; J7040; J7050

== ENCOUNTER 2022-12-26 10:02 | Emergency (ER) | payer MEDICARE, SELFPAY ==
[2022-12-26 10:14] VITALS: BMI 30.4
[2022-12-26 10:17] VITALS: BP 123/72; PULSE 74; RESP 16; TEMP 36.7; O2SAT 97
--- NOTE | 2022-12-26 10:22 | ED_ITS ---
HPI - General Adult General: Chief complaint: General Medical Stated complaint: stomach tube needs removed Time Seen by Provider: 12/26/22 10:17 Source: patient Mode of arrival: ambulatory Limitations: no limitations History of Present Illness: 72-year-old male who had a feeding tube placed twice admitted at [facility] last month. He states that he has follow-up on January 06 but he looked at his sheets and it said possible removal in 4 weeks we want to come to have it checked out. He has had no issues with that he has not been using any has been eating by mouth. No vomiting no diarrhea no fevers no redness no drainage. Associated symptoms: Deny chest pain, headache(s), nausea, rash or vomiting Review of Systems Const: Denies: fever(s) ENMT: Denies: throat pain Card: Denies: chest pain GI: Denies: abdominal pain, nausea or vomiting Musc: Denies: back pain Skin/Breast: Denies: rash Neuro: Denies: headache(s) PFS ED PFSH: Medical History Anxiety Chewing tobacco nicotine dependence Chronic low back pain Chronic nausea Chronic pain of both shoulders Depression Diabetes mellitus with hyperglycemia, without long-term current use of insulin Encounter for long-term opiate analgesic use Environmental and seasonal allergies Essential hypertension GERD (gastroesophageal reflux disease) Hx of sebaceous cyst excision of cyst upper back performed on 05/06/18 Hyperlipidemia Insomnia Low back pain of over 3 months duration Noncompliance OA (osteoarthritis) of knee Opioid contract exists Surgical History Hx of colonoscopy Hx of shoulder surgery Right side Family History Brother Hypertension Kidney transplant Chronic kidney disease (CKD) Denies family history of Clotting disorder Anesthesia complication Bleeding disorder Social History Smoking and tobacco status: former smoker Second hand smoke exposure: No Smoking risk assessment/counseling performed?: Yes Alcohol intake: never Desire information about alcohol rehabilitation?: No Counseling given: No Substance/Drug Use: unknown Desire information about substance/drug rehabilitation?: No Counseling given: No Caregiver/support person: No Lives independently: Yes Housing: House Marital status: Current occupational status: retired Do you think of yourself as: Straight/Heterosexual Current gender identity: Male Physical Exam Const: COMMON NORMALS: no acute distress and patient oriented x3 HENMT: COMMON NORMALS: normocephalic and atraumatic HEAD & SCALP: normocephalic and atraumatic Eye: COMMON NORMALS: conjunctivae normal CONJUNCTIVA: Yes conjunctivae normal Neck/C-Spine: COMMON NORMALS: supple Chest: COMMONS NORMALS: normal inspection of the chest Resp: COMMON NORMALS: normal respiratory effort Cardio: COMMON NORMALS: regular rate RATE: regular rate GI: OTHER: Feeding tube in place no signs of redness or infection Extremity: COMMON NORMALS: normal to inspection Neuro: COMMON NORMALS: patient oriented x3 Course Vital Signs: Vital signs: Vital Signs Temperature 98.0 F 12/26/22 10:17 Pulse Rate 66 12/26/22 10:42 Respiratory Rate 17 12/26/22 10:42 Blood Pressure 127/66 12/26/22 10:42 Pulse Oximetry 95 12/26/22 10:42 Oxygen Delivery Me thod Room Air 12/26/22 10:17 MDM - General Adult Medical Decision Making Patient presented here with questions about his feeding tube he thought that he needed to have it removed I informed him it would not going to remove in the ER he has follow-up with interventional radiology at [facility] on the 12th of this month and they are the ones that placed the feeding tube. I informed him that he needs to follow-up with them and let them decide. He is well- appearing here no signs of infection Discharge Plan Discharge Patient Disposition: Home Clinical Impression: Encounter for tube feeding instruction Condition: Stable Prescriptions: No Action oxycodone 15 mg tablet 15 mg PO QID PRN (Reason: pain) 30 Days Qty: 120 0RF Rx Instructions: fill on or after 07/18/21 oxycodone 15 mg tablet 15 mg PO QID PRN (Reason: pain) 30 Days Qty: 120 0RF Rx Instructions: fill on or after 08/17/21 diclofenac sodium [Voltaren] 1 % gel 4 g topical QID Qty: 200 0RF Rx Instructions: apply to single knee, ankle, foot; for foot includes sole/toes/top of foot trazodone 150 mg tablet 150 mg PO .hs 30 Days Qty: 30 5RF sucralfate [Carafate] 1 gram tablet 1 g PO TID 30 Days Qty: 90 5RF omeprazole 40 mg capsule,delayed release(DR/EC) 40 mg PO DAILY 30 Days Qty: 30 5RF nitroglycerin [Nitrostat] 0.4 mg tablet, sublingual 0.4 mg SUBLINGUAL Q5M PRN (Reason: chest pain) 30 Days Qty: 30 2RF mirtazapine 30 mg tablet 30 mg PO DAILY 30 Days Qty: 30 2RF lisinopril 30 mg tablet 30 mg PO DAILY 30 Days Qty: 30 5RF hydroxyzine pamoate 50 mg capsule 50 mg PO .hs 30 Days Qty: 30 5RF citalopram [Celexa] 20 mg tablet 20 mg PO DAILY 30 Days Qty: 30 5RF cetirizine [Zyrtec] 10 mg tablet 10 mg PO DAILY 30 Days Qty: 30 5RF celecoxib [Celebrex] 100 mg capsule 100 mg PO BID Qty: 60 2RF ezetimibe 10 mg tablet 10 mg PO DAILY Qty: 30 5RF Ozempic 0.25 mg or 0.5 mg(2 mg/1.5 mL) pen injector 0.25 mg SUBCUT ONCE Qty: 1.5 2RF Hold Instructions: Adverse Reaction Rx Instructions: 340B magnesium citrate Solution 300 ml PO DAILY PRN (Reason: constipation) Qty: 296 2RF levofloxacin 500 mg tablet 500 mg PO DAILY Qty: 5 0RF Rx Instructions: continuation of previous metformin 500 mg tablet extended release 24 hr 500 mg PO BID Qty: 60 2RF tamsulosin [Flomax] 0.4 mg capsule 0.4 mg PO DAILY Qty: 30 0RF Rx Instructions: take with evening meal glipizide 10 mg tablet extended release 24hr 10 mg PO DAILY Qty: 30 2RF lactulose 20 gram/30 mL solution 20 g PO BID Qty: 1200 0RF Discharge Orders: Discharge ED (Routine); Ordered 12/26/22 Ordered By: Charlotte Garrett Referrals: Ananya Moeller FNP-C [Primary Care Provider] - Discharge Diet: Advance as tolerated Discharge Activity: Resume usual activity Patient Instructions: How to Use and Care for Your PEG Tube (ED) Coding Level of Care Code ED 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
[2022-12-26 10:42] VITALS: BP 127/66; PULSE 66; RESP 17; O2SAT 95
== END 2022-12-26 10:44 | disposition home or self-care (01) ==
PROVIDERS: Emergency Provider Emergency Medicine; PCP Nurse Practitioner Family
DX: Z43.1 Encounter for attention to gastrostomy (principal); Z79.84 Long term (current) use of oral hypoglycemic drugs; Z87.891 Personal history of nicotine dependence; E11.9 Type 2 diabetes mellitus without complications; I10 Essential (primary) hypertension; E78.5 Hyperlipidemia, unspecified
CPT/HCPCS: 99281

== ENCOUNTER 2023-01-01 14:25 | Oncology outpatient (recurring) (ONCR) | payer MEDICARE, SELFPAY ==
[2023-01-01 16:43] LABS: Basophils # 0.1 10^3/uL (0.0-0.1); Basophils % 0.9 %; Eosinophils # 0.2 10^3/uL (0.0-0.8); Eosinophils % 2.4 %; Hematocrit 34.5 % (42.0-52.0); Hemoglobin 10.5 g/dL (11.7-16.6); Lymphocytes # 0.9 10^3/uL (0.8-4.8); Lymphocytes % 11.4 %; Mean Corpuscular HGB Conc 30.4 g/dL (30.0-36.0); Mean Corpuscular Hemoglobin 24.9 pg (28.0-34.0); Mean Corpuscular Volume 81.9 fl (80-94); Mean Platelet Volume 8.7 fL (7.4-10.4); Monocytes # 0.5 10^3/uL (0.2-0.9); Monocytes % 7.1 %; Neutrophils # 5.95 10^3/uL (1.8-7.7); Neutrophils % 77.7 %; Nucleated Red Blood Cells % 0 %; Platelet Count 393 10^3/cmm (130-400); Red Blood Count 4.21 10^6/uL (4.1-5.3); Red Cell Distribution Width 18.2 % (12.1-15.1); White Blood Count 7.7 10^3/uL (4.0-10.0)
[2023-01-01 17:04] LABS: Carcinoembryonic Antigen 25.4 ng/mL (0.0-4.7)
[2023-01-01 17:15] LABS: Alanine Aminotransferase 12 U/L (0-41); Albumin Level 3.8 g/dL (3.5-5.2); Alkaline Phosphatase 104 U/L (40-130); Anion Gap 14.6 (5-19); Aspartate Amino Transferase 19 U/L (0-40); Blood Urea Nitrogen 11 mg/dL (8-23); Calcium 9.4 mg/dL (8.5-10.5); Carbon Dioxide 26 mmol/L (22-29); Chloride 99 mmol/L (98-107); Globulin 3.1 g/dL (1.3-4.6); Glucose 118 mg/dL (65-115); Osmolality Calculated 282 mOsm/kg (285-295); Potassium 3.6 mmol/L (3.5-5.1); Sodium 136 mmol/L (136-145); Total Bilirubin 0.3 mg/dL (0.15-1.2); Total Protein 6.9 g/dL (6.6-8.7)
== END 2023-01-24 23:59 | disposition home or self-care (01) ==
PROVIDERS: PCP Nurse Practitioner Family; Visit Provider Internal Medicine Medical Oncology
DX: C20 Malignant neoplasm of rectum (principal); C78.6 Secondary malignant neoplasm of retroperitoneum and peritoneum; C79.11 Secondary malignant neoplasm of bladder; K60.4 Rectal fistula; Z93.6 Other artificial openings of urinary tract status; Z85.46 Personal history of malignant neoplasm of prostate; Z92.3 Personal history of irradiation; Z87.891 Personal history of nicotine dependence
CPT/HCPCS: 36415; 80053; 82378; 85025; 99215